=== PATIENT | male | born 1990 | race Caucasian/White ===

== ENCOUNTER 2019-07-14 11:42 | Inpatient (IN) ==
[2019-07-14] MEDS ORDERED: ATARAX PO PRN (13:24)
[2019-07-14] MEDS ORDERED: SENOKOT PO PRN (13:24)
[2019-07-14] MEDS ORDERED: D5W 1,000 ML IV PRN (13:24)
[2019-07-14] MEDS ORDERED: ZOFRAN IV PRN (13:24)
[2019-07-14] MEDS ORDERED: MAALOX PLUS LIQUID PO PRN (13:24)
[2019-07-14] MEDS ORDERED: PHENOBARBITAL IV PRN (13:24)
[2019-07-14] MEDS ORDERED: ROBAXIN PO PRN (13:24)
[2019-07-14] MEDS ORDERED: ZOFRAN ODT PO PRN (13:24)
[2019-07-14] MEDS ORDERED: NICODERM PATCH TD PRN (13:24)
[2019-07-14] MEDS ORDERED: DESYREL PO PRN (13:24)
[2019-07-14] MEDS ORDERED: TYLENOL PO PRN (13:24)
[2019-07-14] MEDS ORDERED: SINEMET 25/100 PO PRN (13:24)
[2019-07-14] MEDS ORDERED: DULCOLAX PR PRN ×2 (13:24→16:54)
[2019-07-14] MEDS ORDERED: IMODIUM PO PRN (13:24)
[2019-07-14] MEDS ORDERED: SEROQUEL PO PRN (13:24)
[2019-07-14] MEDS ORDERED: LIBRIUM PO PRN (13:24)
[2019-07-14] MEDS ORDERED: BENTYL PO PRN (13:24)
[2019-07-14] MEDS ORDERED: TUBERSOL ID ONE (13:24)
[2019-07-14] MEDS ORDERED: TORADOL IV PRN (13:26)
[2019-07-14 14:03] LABS: HEMATOCRIT 43.8 % (42.0-52.0); HEMOGLOBIN 14.4 g/dL (14.0-18.0); MCH 27.6 PG (27-31); MCHC 32.9 g/dL (33-37); MCV 83.9 FL (81-99); MPV 10.1 FL (7.4-10.4); RBC 5.22 XMIL (4.7-6.1); RDW 12.9 % (11.5-14.5); WBC 7.7 X1000 (4.8-10.8)
[2019-07-14 14:12] LABS: AMYLASE 20 U/L (20-200); LIPASE 16 U/L (13-60)
[2019-07-14 14:18] LABS: INR 1.06; PROTIME 14.4 Seconds (11.0-16.0)
[2019-07-14 14:21] LABS: AGAP 11; ALKALINE PHOSPHATASE 74 U/L (32-122); BUN 14 mg/dL (8-22); CALCIUM 9.7 mg/dL (8.8-10.2); CHLORIDE 103 mmol/L (98-107); COSMO 283; CREATININE 0.6 mg/dL (0.7-1.2); ESTIMATED GFR > 60; GLUCOSE 86 mg/dL (70-104); GOT 21 U/L (10-34); GPT 14 U/L (10-44); POTASSIUM 4.4 mmol/L (3.5-5.1); SODIUM 142 mmol/L (136-145); TCO2 29 mmol/L (25-35); TOTAL PROTEIN 7.3 g/dL (6.3-8.3)
[2019-07-14] MEDS ORDERED: M.V.I.-12 10 ML, FOLIC ACID 1 MG, MAGNESIUM SULFATE 1 GM, THIAMINE 100 MG in NS 1,000 ML IV ONE ×10 (18:00)
[2019-07-14] MEDS: LIBRIUM PO SCH ×2 (18:55→23:32)
[2019-07-14 21:59] LABS: URINE SOURCE CLEAN CATCH
[2019-07-14 22:02] LABS: BILIRUBIN URINE NEGATIVE (NEGATIVE); BLOOD URINE NEGATIVE (NEGATIVE); COLOR YELLOW; GLUCOSE URINE NEGATIVE (NEGATIVE); KETONE URINE NEGATIVE (NEGATIVE); LEUKOCYTES URINE SMALL (NEGATIVE); NITRITE URINE NEGATIVE (NEGATIVE); PH URINE 7.5; PROTEIN URINE 30 mg/dL (NEGATIVE); TURBIDITY URINE CLEAR (CLEAR); UROBILINOGEN URINE 2 mg/dL (NORMAL)
[2019-07-14 22:10] LABS: UR EPITHELIAL CELLS <10 /HPF (<10); URINE BACTERIA 2+ /HPF; URINE CASTS NONE SEEN; URINE CRYSTALS NONE SEEN; URINE RBC <10 /HPF (<10); URINE SMALL ROUND CELLS NONE SEEN; URINE WBC TNTC /HPF (<10); URINE YEAST NONE SEEN
[2019-07-14 22:16] LABS: UR AMPHETAMINES QUAL PRESUMPTIVE POSITIVE (NONE DETECT); UR BARBITUATES QUAL NONE DETECTED (NONE DETECT); UR BENZODIAZEPIN QUAL NONE DETECTED (NONE DETECT); UR CANNABINOIDS QUAL NONE DETECTED (NONE DETECT); UR COCAINE QUAL NONE DETECTED (NONE DETECT); UR METHADONE QUAL NONE DETECTED (NONE DETECT); UR METHAMPHETAMINE QUAL PRESUMPTIVE POSITIVE (NONE DETECT); UR OPIATES QUAL NONE DETECTED (NONE DETECT); UR OXYCODONE QUAL NONE DETECTED (NONE DETECT); UR PCP QUAL NONE DETECTED (NONE DETECT); UR PROPOXYPHENE QUAL NONE DETECTED (NONE DETECT); UR TCA QUAL NONE DETECTED (NONE DETECT)
[2019-07-15] MEDS: LIBRIUM PO SCH ×3 (06:00→17:24)
[2019-07-15] MEDS: VITAMIN B-1 PO SCH (12:40)
[2019-07-15] MEDS: PROTONIX PO SCH (12:40)
[2019-07-15] MEDS: ROCEPHIN 1 GM in NS 50 ML IV SCH (12:40)
[2019-07-15] MEDS: THERA M PLUS PO SCH (12:40)
[2019-07-15] MEDS: FOLIC ACID PO SCH (12:40)
--- NOTE | 2019-07-15 15:19 | Diag Imaging Result Doc PS360 ---
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 FINDINGS: The lungs are grossly clear with no airspace consolidations. There is no discrete pleural fluid collection or pneumothorax. The cardiomediastinal silhouette and central vasculature are grossly unremarkable. IMPRESSION: No evidence of acute pathology by plain radiograph. Electronically signed by Seng Courtney 07/15/2019 3:16 PM
--- NOTE | 2019-07-15 16:20 | PROGRESS NOTE ---
DATE: 07/15/2019 SUBJECTIVE: Patient this morning is a little more somnolent. PHYSICAL EXAMINATION: Vital Signs: Reviewed. He is somnolent. He does arouse. Staff notes he was awake, alert, oriented prior to sneaking off the floor and since coming back, he has been more difficult to arouse. HEENT: Normocephalic. Neck: Supple. Cardiovascular: Regular rate. Chest: Clear. Abdomen: Soft. Extremities: Moves all extremities. Neurologic: No changes. ASSESSMENT: 1. Nausea and vomiting. 2. Abdominal pain. 3. Myalgias. 4. Paresthesias. 5. Opiate abuse withdrawal and stabilization. 6. Polysubstance use and abuse. PLAN: We are going to continue patient in the hospital although we will hold all sedatives at the present time. I discussed with him that he is not allowed to leave the floor without a cleaning professional. cc: Devan Danielle MD
[2019-07-15] MEDS ORDERED: NS 1,000 ML ONE (17:25)
[2019-07-16] MEDS: NS 1,000 ML IV SCH ×4 (00:26→17:00)
[2019-07-16] MEDS: LIBRIUM PO SCH (04:30)
[2019-07-16] MEDS: PROTONIX PO SCH ×2 (06:32→06:40)
[2019-07-16] MEDS: ROCEPHIN 1 GM in NS 50 ML IV SCH (06:40)
[2019-07-16] MEDS: VITAMIN B-1 PO SCH (10:46)
[2019-07-16] MEDS: FOLIC ACID PO SCH (10:46)
[2019-07-16] MEDS: THERA M PLUS PO SCH (10:46)
--- NOTE | 2019-07-16 16:58 | PROGRESS NOTE ---
DATE: 07/16/2019 SUBJECTIVE: Patient seen this morning. He is still somnolent, difficult to arouse, but is arousable. Difficult to stay awake. OBJECTIVE: Vital Signs: Reviewed. Temp 97.6 degrees, pulse 57, respiratory rate 18, BP low at 87/45. General: Patient is in no distress, but is somnolent. HEENT: Normocephalic. Neck: Supple. Cardiovascular: Regular rate. Chest: Clear. Abdomen: Soft. Extremities: Moves all extremities. ASSESSMENT: 1. Nausea, vomiting. 2. Abdominal pain. 3. Hypotension. 4. Paresthesias. 5. Polysubstance use and abuse. PLAN: We are going to continue patient in the hospital. We are going to hold his Librium as well as any other sedative medications. We will continue normal saline for his low blood pressures and we will follow. cc: Devan Danielle MD
[2019-07-17] MEDS: NS 1,000 ML IV SCH (03:16)
[2019-07-17] MEDS: PROTONIX PO SCH (06:13)
[2019-07-17] MEDS: ROCEPHIN 1 GM in NS 50 ML IV SCH (08:10)
[2019-07-17] MEDS: THERA M PLUS PO SCH (08:10)
[2019-07-17] MEDS: FOLIC ACID PO SCH (08:10)
[2019-07-17] MEDS: VITAMIN B-1 PO SCH (08:10)
[2019-07-17 17:20] LABS: UR AMPHETAMINES QUAL PRESUMPTIVE POSITIVE (NONE DETECT); UR BARBITUATES QUAL NONE DETECTED (NONE DETECT); UR BENZODIAZEPIN QUAL PRESUMPTIVE POSITIVE (NONE DETECT); UR CANNABINOIDS QUAL NONE DETECTED (NONE DETECT); UR COCAINE QUAL NONE DETECTED (NONE DETECT); UR METHADONE QUAL NONE DETECTED (NONE DETECT); UR METHAMPHETAMINE QUAL NONE DETECTED (NONE DETECT); UR OPIATES QUAL NONE DETECTED (NONE DETECT); UR OXYCODONE QUAL NONE DETECTED (NONE DETECT); UR PCP QUAL NONE DETECTED (NONE DETECT); UR PROPOXYPHENE QUAL NONE DETECTED (NONE DETECT); UR TCA QUAL NONE DETECTED (NONE DETECT)
--- NOTE | 2019-07-17 19:45 | PROGRESS NOTE ---
DATE: 07/17/2019 SUBJECTIVE: Patient is much more awake and alert today than he has been in the past. Uncertain if when he had gone downstairs unaccompanied if he had taken anything because he certainly was much more disoriented when he came back. He has been asleep for the past 2 days. Thankfully, his vital signs have been stable. He has not been on any sedatives. PHYSICAL EXAM: Vital signs: Temperature 98.0 degrees, pulse 61, respiratory rate 18, BP 101/62. General: Patient currently is awake, alert. He is in no distress. HEENT: Normocephalic. Neck: Supple. Cardiovascular: Regular rate. Chest: Clear, nonlabored. Abdomen: Soft, nondistended. Extremities: Moves all extremities. ASSESSMENT: 1. Nausea, vomiting. 2. Acute sedation. 3. Tremors. 4. Myalgias. 5. Paresthesias. 6. Paroxysmal sweating. 7. Polysubstance use and abuse and withdrawal. PLAN: We will continue patient in the hospital today until we can get proper arrangements for discharge, hopefully, over the next day or 2. Continue to hold his sedatives. His withdrawal issues as well as the sedation appear to have improved. cc: Devan Danielle MD
[2019-07-17 21:33] VITALS: BP 99/50
[2019-07-18] MEDS: PROTONIX PO SCH (06:18)
[2019-07-18] MEDS: ROCEPHIN 1 GM in NS 50 ML IV SCH (07:57)
[2019-07-18] MEDS: THERA M PLUS PO SCH (08:01)
[2019-07-18] MEDS: VITAMIN B-1 PO SCH (08:01)
[2019-07-18] MEDS: FOLIC ACID PO SCH (08:01)
--- NOTE | 2019-07-19 15:59 | DISCHARGE SUMMARY ---
ADMISSION DATE: 07/14/2019 DISCHARGE DATE: 07/18/2019 DISCHARGE DIAGNOSES: 1. Nausea and vomiting. 2. Abdominal pain. 3. Myalgias. 4. Paresthesias. 5. Paroxysmal sweating. 6. Polysubstance use and abuse. CONSULTATIONS: None. PROCEDURES: None. BRIEF HOSPITAL COURSE: The patient is a 29-year-old male who presented to [facility] program secondary to nausea, vomiting, abdominal pain, myalgias, and paresthesias. He was placed on Librium taper. Continue to taper as tolerated. on discharge, he is awake, alert, and oriented. He is in no distress. Overall he is feeling better. DISPOSITION: Patient will be discharged home. Discussed with him that he needs outpatient life counseling as well as drug counseling. He is to follow up with treatment facility of choice. He needs to avoid all persons, places, and situations which he has been using and abusing in the past. TIME SPENT: Greater than 30 minutes was spent in total care. No medications were written on discharge. cc: Devan Danielle MD MTDD
--- NOTE | 2019-07-21 22:44 | HISTORY AND PHYSICAL ---
CHIEF COMPLAINT: Nausea. HISTORY OF PRESENT ILLNESS: Patient is a 29-year-old male who presented to [facility] secondary nausea, vomiting, abdominal pain, myalgias, paresthesias. He notes that he has been drinking heavily. He has also been taking Suboxone. States that he uses meth every day as well and he needs help. PAST MEDICAL HISTORY: Significant for drug induced CVA, aneurysm, he has had a craniotomy and an induced coma in 2015, history of concussions and seizures, chronic anxiety, depression, currently in opioid treatment. REVIEW OF SYSTEMS: CINA score is 19 secondary to constant yawning, nausea, tremors, myalgias, sweating, intermittent hot and cold chills, paresthesias, sniffing, sneezing, watery eyes. He is restless, fidgety. He has had a decreased oral intake, decreased concentration, unable to sit still. Denies any headaches, blurred vision. Denies any focalized numbness, tingling, weakness in his extremities. Denies any dysuria, frequency, urgency, hesitancy. Denies polyuria or polydipsia. ALLERGIES: No known drug allergies. MEDICATIONS: Currently on Suboxone 02/03, with his last dose yesterday. SUBSTANCE ABUSE HISTORY: [facility] was [facility], stayed sober 90 days. In 2019, he went to [facility] as well as [facility], stayed sober for 90 days. Notes that substance abuse has caused legal, emotional, health problems, financial problems. States that he has since relapsed after he failed drug screens and was going to get dismissed from his treatment facility. Started drinking at 12, currently drinks a pint a day. Started meth at 19, currently using IV meth daily. Started opiates at 12, has used Saira's and heroin. He recently has been on Suboxone as well as heroin. Started nicotine at 12, currently smokes pack a day. FAMILY HISTORY: Noncontributory. PHYSICAL EXAMINATION: VITAL SIGNS: Reviewed and stable. GENERAL: Patient is awake, alert, currently in no respiratory distress. HEENT: Normocephalic. NECK: Supple. CARDIOVASCULAR: Regular rate. CHEST: Clear. ABDOMEN: Soft. EXTREMITIES: Moves all extremities. NEUROLOGIC: No focal changes. SKIN: Warm, dry. No rashes. ASSESSMENT: 1. Nausea, vomiting. 2. Abdominal pain. 3. Myalgias. 4. Paresthesias. 5. Paroxysmal sweating. 6. Opiate abuse withdrawal and stabilization. 7. Alcohol abuse withdrawal and stabilization. 8. Polysubstance abuse with meth. 9. Tobacco abuse. PLAN: We are going to continue patient in the hospital, place on high-dose Librium taper, start off and use only as needed Suboxone. We will attempt to wean him off of everything while he is in the hospital and will follow. cc: Devan Danielle MD MTDD
== END 2019-07-18 10:32 | disposition home or self-care (01) | DRG 897 ==
LOC: P.MEDSURG 13:09
PROVIDERS: ADMIT Family Medicine; ATTEND Family Medicine